=== PATIENT | female | born 1970 | race Caucasian/White ===

== ENCOUNTER → 2024-02-22 08:36 | Outpatient (REF) | payer OTHER, SELFPAY ==
[2024-02-22 09:20] LABS: % Basophils 2.6 % (0-2); % Eosinophils 6.6 % (0-6); % Lymphocytes 43.1 % (20.5-51.1); % Neutrophils 41.7 % (42.2-75.2); Absolute Basophils 0.1 10^3/uL (0-0.2); Absolute Eosinophils 0.2 10^3/uL (0-0.7); Absolute Lymphocytes 1.5 10^3/uL (1.2-3.4); Absolute Monocytes 0.2 10^3/uL (0.1-0.6); Absolute Neutrophils 1.5 10^3/uL (1.4-6.5); White Blood Cell Count 3.5 10^3/uL (4.8-10.8)
[2024-02-22 09:43] LABS: AST (SGOT) 64 U/L (14-36)
[2024-02-22 10:13] LABS: Glycohemoglobin (HgbA1c) 5.7 % (4.0-5.6)
[2024-02-24 00:05] LABS: Lipoprotein a (Lp a) 108 mg/dL (<=29)
== END ==
LOC: REG 08:36
PROVIDERS: ATTENDING PHYSICIAN Internal Medicine Cardiovascular Disease; FAMILY PHYSICIAN Nurse Practitioner
DX: E78.5 Hyperlipidemia, unspecified (principal); E78.00 Pure hypercholesterolemia, unspecified; R73.03 Prediabetes; R79.89 Other specified abnormal findings of blood chemistry; D72.819 Decreased white blood cell count, unspecified
CPT/HCPCS: 36415; 83036; 83695; 84450; 85004

== ENCOUNTER → 2024-07-28 06:44 | Outpatient (REF) | payer OTHER, SELFPAY | LOC: HWRAD 06:44 | PROVIDERS: ATTENDING PHYSICIAN Internal Medicine Gastroenterology; FAMILY PHYSICIAN Internal Medicine | DX: R79.89 Other specified abnormal findings of blood chemistry (principal) | CPT/HCPCS: 76700 ==

== ENCOUNTER → 2025-02-19 10:34 | Outpatient (REF) | payer OTHER, SELFPAY | LOC: WDC 10:34 | PROVIDERS: ATTENDING PHYSICIAN Physician Assistant Medical | DX: Z12.31 Encounter for screening mammogram for malignant neoplasm of breast (principal) | CPT/HCPCS: 77063; 77067 ==

== ENCOUNTER 2025-05-22 12:24 | Day surgery (SDC) | payer OTHER, SELFPAY ==
[2025-05-22] VITALS (13 sets, daily range): BP systolic 117–142; BP diastolic 69–98; BMI 17.1
--- NOTE | 2025-05-22 05:33 | ED.GENMED ---
History of Present Illness
<Bipin Pérez MD - Last Filed: 05/22/25 13:39>
General
Chief Complaint: Abdominal Pain
Source: patient and spouse
Exam Limitations: none
Time Seen by Provider: 05/22/25 05:13
Nursing documentation reviewed up to this point in time: agreed with
History of Present Illness
History of Present Illness:
Patient presents to ED secondary to persistent lower abdominal pain along with sensation of being 'tired' over the past 3 days. Abdominal pain described as discomfort, nonradiating, without vomiting or diarrhea. Initially, abdominal pain appeared
to be worse with certain meals, but over the past 24 hours, he has been able to tolerate meals without any change in his symptoms. Denies previous history of similar symptoms. Denies fever or chills. Denies trauma. Patient does have history of
kidney stones, but states that her symptoms are different. Denies recent travel. Denies recent change in medications or diet. Denies sick contact. Patient reports having had previous colonoscopy, without any significant findings.
Past History
<Bipin Pérez MD - Last Filed: 05/22/25 13:39>
Past History
ED Past Medical History: None
ED Past Surgical History: None
Social History
Tobacco: Non-smoker
Alcohol: None
Drug: None
Review of Systems
<Bipin Pérez MD - Last Filed: 05/22/25 13:39>
Review of Systems
Allergies reviewed?: Yes
All Other Systems: ROS reviewed and negative except as documented in HPI and ROS
Constitutional: Reports no symptoms; Denies fever
Respiratory: Reports no symptoms
Cardiac: Reports no symptoms
ABD/GI: Reports abdominal pain; Denies vomiting or diarrhea
Musculoskeletal: Reports no symptoms
Skin: Reports no symptoms
Neurological: Reports no symptoms
Phy Exam
<Bipin Pérez MD - Last Filed: 05/22/25 13:39>
Physical Exam
Physical Exam:
Physical Exam
General: mild distress, not acutely ill. afebrile
Head: nc/at. eomi
Neck: supple. normal range of motion.
Abdomen: normal bowel sounds. no distention. mild periumbilical tenderness to palpation
Neuro: alert and oriented x 3. no focal neurological deficits
Skin: no rash
Psychiatric: well kept. interactive and cooperative
Extremities: no edema. no calf tenderness.
Course
<Bipin Pérez MD - Last Filed: 05/22/25 13:39>
Orders/Labs/Results
Orders:
Orders
05/22/25 05:03
IV Insert/Care/Rem.- Treatment PRN
05/22/25 05:24
CT Abd/pelvis W Iv Cont Urgent
Comment:
Reason For Exam: RLQ pain
05/22/25 05:31
Complete Blood Count/With Diff Urgent
Comprehensive Metabolic Panel Urgent
Lipase Urgent
05/22/25 06:11
0.9% Sodium Chloride 500 ml [Nss] 500 ml IV BOLUS
05/22/25 07:54
Piperacillin/Tazo 4.5 Gram [Zosyn] 4.5 gram in 100 ml IV NOW
05/22/25 08:15
Urinalysis Reflex To Culture Urgent
Date Specimen was Collected: 05/22/25
Time Specimen was Collected: 05:04
Urine Microscopic Reflex Cult Urgent
Urine Culture Urgent
DARIUS Source: U
Specimen Description:
Date Specimen was Collected: 05/22/25
Time Specimen was Collected: 05:04
05/22/25 10:10
Dexamethasone Sod Phosphate [Decadron] 20 mg .ROUTE .STK-MED ONE
Lidocaine 2% Mpf [Xylocaine Mpf 2%] 100 mg .ROUTE .STK-MED ONE
Ondansetron Injectable [Zofran] 4 mg .ROUTE .STK-MED ONE
Propofol [Diprivan] 20 ml .ROUTE .STK-MED
Rocuronium Diamond [place] [Rocuronium] 50 mg .ROUTE .STK-MED ONE
05/22/25 10:56
Admit/Transfer Patient As Directed
Co-Sign Provider:
Level of Care: Post Proc/Surg Recovery
Assign to:: Medical/Surgical
Physician / Group: [facility]inson/general surgery
Diagnosis: Acute appendicitis
Reason for Overnight Stay: Standard of Care
Code Status As Directed
Resuscitation Status: Full Code
PRN Pain Medication Management As Directed
May give lesser potent ordered pain med per pt: Yes
preference::
Protocol:: Medication orders for pain may be administered in a
manner that supports deferring to patient preference
when the pt is:
- Requesting an ordered lesser potent pain medication.
Least to most potent pain medications are defined
as: acetaminophen < NSAID < tramadol < opioids
(morphine, oxycodone, hydromorphone).
- Requesting a lesser dose of the same medication IF
ORDERED.
- Requesting a less intrusive route of administration
if both routes are prescribed by the provider (PO <
IV).
05/22/25 11:00
0.9% Sodium Chloride 1000 ml [Nss] 1,000 ml IV 100 mls/hr
05/22/25 11:57
Fentanyl Citrate/Pf [Sublimaze] 25 mcg IV [id number] PRN
HYDROmorphone [Dilaudid] 0.25 mg IV PACU-Q5MPRN PRN
HYDROmorphone [Dilaudid] 0.5 mg IV PACU-Q5MPRN PRN
Ondansetron Injectable [Zofran] 4 mg IV PACU-ONCEPRN PRN
Notify MD As Directed
Notify physician if: for SDS patients with known or suspected sleep obstructive sleep apnea, monitor in the
PACU.
Notify MD for any apneic/desaturation episodes
O2 Therapy [RESP] Urgent
Titrate/Wean O2 to maintain O2 sat greater than (%): 92
Special Instructions: -Provide supplemental oxygen to achieve O2 sat of 92% or greater.
-After 15 min, may wean O2 and discontinue if patient is able to maintain O2 sat of 92%
or greater during recovery period.
If patient is a discharge home, without oxygen therapy, notify anestheiologist if
unable to maintain O2 SAT of 92% or greater on room air for MD clearance.
05/22/25 12:00
Normosol (Mult Electrolytes) [Normosol-R/Plasmalyte-A] 1,000 ml IV PER PROTOCOL
05/22/25 12:18
Piperacillin/Tazo 3.375 Gram [Zosyn] 3.375 gram in 50 ml .ROUTE .STK-MED
05/22/25 12:33
Fentanyl Citrate/Pf [Sublimaze] 100 mcg .ROUTE .STK-MED ONE
Midazolam HCl [Versed] 2 mg .ROUTE .STK-MED ONE
05/22/25 12:37
Bupivacaine 0.5%Pf/Epinephrin [Sensorcain-Mpf Epi 0.5%-0.0005] 30 ml .ROUTE .STK-MED ONE
05/22/25 12:45
Propofol [Diprivan] 40 ml .ROUTE .STK-MED
05/22/25 13:14
Phenylephrine HCl/0.9% NaCl [Blair-Synephrine] 1,000 mcg .ROUTE .STK-MED ONE
05/22/25 13:18
Sugammadex Sodium [Bridion] 200 mg .ROUTE .STK-MED ONE
05/22/25 13:30
Ketorolac [Toradol] 30 mg .ROUTE .STK-MED ONE
05/22/25 13:33
OR Pathology Routine
Pre-Operative Diagnosis: ACUTE APPENDICITIS
Operative Procedure: LAP APPY
Surgeon: DR. Wesly DIXON
Specimen Type: APPENDIX
Abnormal Lab Results
05/22/25 05/22/25
05:31 08:15
Absolute Neuts (auto) 9.2 H 10^3/uL
(1.4-6.5)
Absolute Lymphs (auto) 0.8 L 10^3/uL
(1.2-3.4)
Absolute Monos (auto) 0.7 H 10^3/uL
(0.1-0.6)
Neutrophils % 84.8 H %
(42.2-75.2)
Lymphocytes % 7.3 L %
(20.5-51.1)
Sodium 130 L mmol/L
(135-145)
Chloride 95 L mmol/L
(98-107)
Glucose 110 H mg/dl
(70-99)
AST 43 H U/L
(14-36)
Urine Ketones 3+ A
(Negative)
Ur Occult Blood Reflex 2+ A
(Negative)
Urine Bacteria (Reflex) Many A
(Negative)
Urine Albumin (Reflex) 2+ A
(Neg - Trace)
05/22/25 05:31
05/22/25 05:31
Vital Signs
Initial and Last Documented VS:
Initial Vital Signs
Temp Pulse Resp BP Pulse Ox
98.4 F 87 18 135/88 97
05/22/25 04:49 05/22/25 04:49 05/22/25 04:49 05/22/25 04:49 05/22/25 04:49
Last Documented Vital Signs
Temp Pulse Resp BP Pulse Ox
98.6 F 69 20 130/79 96
05/22/25 07:39 05/22/25 10:30 05/22/25 07:39 05/22/25 10:00 05/22/25 10:30
<Glenny Cleveland, DO - Last Filed: 05/22/25 07:54>
Orders/Labs/Results
Orders:
Orders
05/22/25 05:03
IV Insert/Care/Rem.- Treatment PRN
05/22/25 05:24
CT Abd/pelvis W Iv Cont Urgent
Comment:
Reason For Exam: RLQ pain
05/22/25 05:31
Complete Blood Count/With Diff Urgent
Comprehensive Metabolic Panel Urgent
Lipase Urgent
05/22/25 06:11
0.9% Sodium Chloride 500 ml [Nss] 500 ml IV BOLUS
05/22/25 07:54
Piperacillin/Tazo 4.5 Gram [Zosyn] 4.5 gram in 100 ml IV NOW
05/22/25 08:15
Urinalysis Reflex To Culture Urgent
Date Specimen was Collected: 05/22/25
Time Specimen was Collected: 05:04
Urine Microscopic Reflex Cult Urgent
Urine Culture Urgent
DARIUS Source: U
Specimen Description:
Date Specimen was Collected: 05/22/25
Time Specimen was Collected: 05:04
05/22/25 10:10
Dexamethasone Sod Phosphate [Decadron] 20 mg .ROUTE .STK-MED ONE
Lidocaine 2% Mpf [Xylocaine Mpf 2%] 100 mg .ROUTE .STK-MED ONE
Ondansetron Injectable [Zofran] 4 mg .ROUTE .STK-MED ONE
Propofol [Diprivan] 20 ml .ROUTE .STK-MED
Rocuronium [place] [Rocuronium] 50 mg .ROUTE .STK-MED ONE
05/22/25 10:56
Admit/Transfer Patient As Directed
Co-Sign Provider:
Level of Care: Post Proc/Surg Recovery
Assign to:: Medical/Surgical
Physician / Group: Linson/general surgery
Diagnosis: Acute appendicitis
Reason for Overnight Stay: Standard of Care
Code Status As Directed
Resuscitation Status: Full Code
PRN Pain Medication Management As Directed
May give lesser potent ordered pain med per pt: Yes
preference::
Protocol:: Medication orders for pain may be administered in a
manner that supports deferring to patient preference
when the pt is:
- Requesting an ordered lesser potent pain medication.
Least to most potent pain medications are defined
as: acetaminophen < NSAID < tramadol < opioids
(morphine, oxycodone, hydromorphone).
- Requesting a lesser dose of the same medication IF
ORDERED.
- Requesting a less intrusive route of administration
if both routes are prescribed by the provider (PO <
IV).
05/22/25 11:00
0.9% Sodium Chloride 1000 ml [Nss] 1,000 ml IV 100 mls/hr
05/22/25 11:57
Fentanyl Citrate/Pf [Sublimaze] 25 mcg IV [id number] PRN
HYDROmorphone [Dilaudid] 0.25 mg IV PACU-Q5MPRN PRN
HYDROmorphone [Dilaudid] 0.5 mg IV PACU-Q5MPRN PRN
Ondansetron Injectable [Zofran] 4 mg IV PACU-ONCEPRN PRN
Notify MD As Directed
Notify physician if: for SDS patients with known or suspected sleep obstructive sleep apnea, monitor in the
PACU.
Notify MD for any apneic/desaturation episodes
O2 Therapy [RESP] Urgent
Titrate/Wean O2 to maintain O2 sat greater than (%): 92
Special Instructions: -Provide supplemental oxygen to achieve O2 sat of 92% or greater.
-After 15 min, may wean O2 and discontinue if patient is able to maintain O2 sat of 92%
or greater during recovery period.
If patient is a discharge home, without oxygen therapy, notify anestheiologist if
unable to maintain O2 SAT of 92% or greater on room air for MD clearance.
05/22/25 12:00
Normosol (Mult Electrolytes) [Normosol-R/Plasmalyte-A] 1,000 ml IV PER PROTOCOL
05/22/25 12:18
Piperacillin/Tazo 3.375 Gram [Zosyn] 3.375 gram in 50 ml .ROUTE .STK-MED
05/22/25 12:33
Fentanyl Citrate/Pf [Sublimaze] 100 mcg .ROUTE .STK-MED ONE
Midazolam HCl [Versed] 2 mg .ROUTE .STK-MED ONE
05/22/25 12:37
Bupivacaine 0.5%Pf/Epinephrin [Sensorcain-Mpf Epi 0.5%-0.0005] 30 ml .ROUTE .STK-MED ONE
05/22/25 12:45
Propofol [Diprivan] 40 ml .ROUTE .STK-MED
05/22/25 13:14
Phenylephrine HCl/0.9% NaCl [Blair-Synephrine] 1,000 mcg .ROUTE .STK-MED ONE
05/22/25 13:18
Sugammadex Sodium [Bridion] 200 mg .ROUTE .STK-MED ONE
05/22/25 13:30
Ketorolac [Toradol] 30 mg .ROUTE .STK-MED ONE
05/22/25 13:33
OR Pathology Routine
Pre-Operative Diagnosis: ACUTE APPENDICITIS
Operative Procedure: LAP APPY
Surgeon: DR. Wesly DIXON
Specimen Type: APPENDIX
Abnormal Lab Results
05/22/25 05/22/25
05:31 08:15
Absolute Neuts (auto) 9.2 H 10^3/uL
(1.4-6.5)
Absolute Lymphs (auto) 0.8 L 10^3/uL
(1.2-3.4)
Absolute Monos (auto) 0.7 H 10^3/uL
(0.1-0.6)
Neutrophils % 84.8 H %
(42.2-75.2)
Lymphocytes % 7.3 L %
(20.5-51.1)
Sodium 130 L mmol/L
(135-145)
Chloride 95 L mmol/L
(98-107)
Glucose 110 H mg/dl
(70-99)
AST 43 H U/L
(14-36)
Urine Ketones 3+ A
(Negative)
Ur Occult Blood Reflex 2+ A
(Negative)
Urine Bacteria (Reflex) Many A
(Negative)
Urine Albumin (Reflex) 2+ A
(Neg - Trace)
05/22/25 05:31
05/22/25 05:31
Vital Signs
Initial and Last Documented VS:
Initial Vital Signs
Temp Pulse Resp BP Pulse Ox
98.4 F 87 18 135/88 97
05/22/25 04:49 05/22/25 04:49 05/22/25 04:49 05/22/25 04:49 05/22/25 04:49
Last Documented Vital Signs
Temp Pulse Resp BP Pulse Ox
98.6 F 69 20 130/79 96
05/22/25 07:39 05/22/25 10:30 05/22/25 07:39 05/22/25 10:00 05/22/25 10:30
<Bipin Pérez MD - Last Filed: 05/22/25 13:39>
*Pulse Oximetry
SaO2: 97
Oxygen Mode of Delivery: Room air
Patient hypoxic: no
*Critical Care Note
Total Time (30-74mins, 75-104mins- exclusive of procedures): Not Applicable
<Glenny Cleveland DO - Last Filed: 05/22/25 07:54>
Update Note
Update Note:
Attending Sign Out Note (Glenny Cleveland DO)
07:20 -assuming care of patient, 54-year-old female presenting to the emergency department for right lower abdominal pain with generalized fatigue and tiredness. No report of fever or additional GI issues. Hemodynamically stable in the emergency
department. Noted to have some generalized tenderness to lower abdomen. Reassuring workup thus far with normal laboratory analysis. Pending CT abdomen and pelvis
07:50 -discussed with radiology with concern for acute appendicitis. Message sent to surgery. Likely plan for admission with antibiotics and surgical management.
ED Attending Note
<Bipin Pérez MD - Last Filed: 05/22/25 13:39>
-
Portions of this chart may have been created with voice recognition software.� Occasional wrong word or��sound alike� substitutions may have occurred due to the inherent limitations of voice recognition software.
Discharge Plan
Departure
Patient Disposition: Admit
Date of Disposition: 05/22/25
Time of Disposition: 08:30
Presentation/result/management discussed w/ accepting MD/DO: gabe Dixon
Patient with high blood pressure during this ER visit?: No
Condition: Good
Discharge Problem:
Acute appendicitis
Interventions
Interventions:
*Risk Screen - Suicide Last Done: 05/22/25 04:52
*General Assessment Last Done: 05/22/25 04:52
*Neglect/Abuse Screening Last Done: 05/22/25 04:52
*ED- Fall Risk Assessment Last Done: 05/22/25 04:52
*ED COVID-19 Vaccine History Last Done: 05/22/25 04:52
*ED Influenza Vaccine History Last Done: 05/22/25 04:52
*Nursing Disposition Last Done: 05/22/25 12:01
YJ-Dzuyaf-Tbctaypyza Assessment Last Done: 05/22/25 07:39
Discharge Date and Time
Discharge Date/Time: 05/22/25 12:03
[2025-05-22 05:42] LABS: Hematocrit 39.0 % (37.0-47.0); Hemoglobin 13.5 g/dL (12.0-16.0); Mean Corp Hgb Conc. 34.6 g/dL (33.0-37.0); Mean Corpuscular Volume 89.7 fL (81.0-99.0); Nucleated Red Blood Cells % 0 %; Platelet Count 250 10^3/uL (130-400); Red Cell Dist. Width 11.9 % (11.5-14.5)
[2025-05-22 06:08] LABS: ALT (SGPT) 11 U/L (0-35); AST (SGOT) 43 U/L (14-36); Albumin 4.3 g/dl (3.5-5.0); Alkaline Phosphatase 63 U/L (38-126); Blood Urea Nitrogen 13 mg/dl (7-17); Calcium 9.2 mg/dl (8.4-10.2); Carbon Dioxide 28 mmol/L (22-30); Chloride 95 mmol/L (98-107); Estimated Creatinine Clearance 71 ml/min; Glucose 110 mg/dl (70-99); Lipase 181 U/L (23-300); Potassium 4.0 mmol/L (3.5-5.1); Sodium 130 mmol/L (135-145); Total Protein 7.3 g/dl (6.3-8.2); eGFR > 60.00
[2025-05-22] MEDS: NSS 500 IV (06:32)
[2025-05-22] MEDS: ZOSYN 100 IV (08:27)
[2025-05-22 08:41] LABS: Urine Character Clear (Clear)
[2025-05-22 09:05] LABS: Urine Red Blood Cell 0-2 /HPF (0-2); Urine White Cell 0-2 /HPF (0-5)
--- NOTE | 2025-05-22 10:47 | HPS.HSE ---
Addendum entered and electronically signed by Angelo Zamorano MD 05/22/25 11:06:
I saw and examined the patient.
The Resolution Analyst's note was reviewed and I agree with the note.
Comment: Periumbilical pain began 3 days ago and migrated to RLQ. ttp on exam. labs essentially unremarkable. CT c/w acute appendicitis with appendicolith. OCTOR for lap appy. IV abx.
Original Note:
Family Physician
-
Family Physician: Roxanne Leiws DO
Chief Complaint
-
RLQ pain
History of Present Illness
Ms Schwab is a 54 yo female with a h/o migraines, SVT and renal stones requiring ureteroscopy in the past who presents with abdominal pain which began Sunday night initially as a sharp pain near the umbilicus. Pain was initially generalized and then
began to localize to the RLQ with tenderness to touch. She denies nausea or vomiting but notes pain worsens with PO intake. She has felt very fatigued since onset of symptoms. She denies fevers or chills. On exam, RLQ tenderness is present.
Medical History
Past Medical History
Past Medical History: Reports Arrhythmia (SVT) and Other (migraine, spinal stenosis)
Past Surgical History: Reports Urological (ureteroscopy for stones) and Other (colonoscopy 2022 with polypectomy)
Social History
Tobacco: Non-smoker
Alcohol: None
Personal:
Living: With Family
Family History
Family History: Not pertinent
Allergies / Home Medications
Allergies reflects when Allergies were last updated in [employer]
Home Medications with original date entered in [employer]
Allergy/Medication List:
Patient Allergies
Allergy/AdvReac Type Severity Reaction Status Date / Time
Sulfa (Sulfonamide Allergy Unknown Verified 05/20/20 22:31
Antibiotics)
�Medication �Instructions �Recorded �Confirmed �Type
coQ10 (ubiquinol) 100 mg capsule 100 mg PO DAILY Supplement 05/22/25 05/22/25 History
magnesium oxide 200 mg PO DAILY Supplement 05/22/25 05/22/25 History
sumatriptan succinate 50 mg tablet 0 mg PO .COMPLEX 05/22/25 05/22/25 History
(Imitrex)
therapeutic multivitamin 1 tab PO DAILY Supplement 05/22/25 05/22/25 History
vitamin B complex 1 tab PO DAILY Supplement 05/22/25 05/22/25 History
Review of Systems
-
History Source: Patient and Family
A 12 point ROS was completed and negative except as noted: Yes
Physical Exam
Vital Signs
Vital Signs
Temp Pulse Resp BP Pulse Ox
98.6 F 68 20 117/81 97
05/22/25 07:39 05/22/25 09:15 05/22/25 07:39 05/22/25 09:00 05/22/25 09:15
Physical Exam
General: Well Developed and Other (thin)
HEENT: NormoCephalic and Moist mucous membranes
Respiratory: Non Labored Respirations
GI: Soft, Non Distended and Tender (RLQ)
Skin: Warm and Dry
Neuro: Awake, Alert and AO x 3
Psych: Calm
Laboratory Results
-
05/22/25 05:31
05/22/25 05:31
Laboratory Results
Total Bilirubin 0.7 mg/dl (0.2-1.3) 05/22/25 05:31
AST 43 U/L (14-36) H 05/22/25 05:31
ALT 11 U/L (0-35) 05/22/25 05:31
Alkaline Phosphatase 63 U/L (38-126) 05/22/25 05:31
Lipase 181 U/L (23-300) 05/22/25 05:31
Data Reviewed
-
CT Scan: Image Personally Visualized and interpreted, Report Reviewed by me, Discussed with Physician, Discussed with Patient and Discussed with Family
Lab Data: Labs Reviewed by me, Discussed with Physician, Discussed with Patient and Discussed with Family
Old Records: Reviewed
Impression/Plan
-
IMPRESSION: 54 yo female presenting with 3-4 days of abdominal pain which was initially generalized but now localized to the RLQ. Fatigue since onset of symptoms with increased pain with PO intake. Tenderness present on exam to the RLQ. CT imaging
reviewed and consistent with acute appendicitis. No evidence of perforation. AFVSS. No leukocytosis, however left shift present. Mild hyponatremia suspect secondary to hypovolemia from poor PO intake over the past few days
PLAN:
Keep NPO
C/W IV zosyn which was initiated in the ED
start IVF with NSS @100ml/hr
Analgesics prn
Will plan OR later today for laparoscopic appendectomy
--- NOTE | 2025-05-22 12:00 | EDRN ---
Teri from the OR called this RN and verbal report was given
--- NOTE | 2025-05-22 13:39 | OR.RPT ---
Operative Report
Operative Report
Primary Surgeon: Lona
Assisting: Yolie HOROWITZ
Pre-op Diagnosis: Acute appendicitis
Post-op Diagnosis: Same
Procedure Performed: Laparoscopic appendectomy
Anesthesia Type: GETA
Specimen / Cultures: Appendix
Estimated Blood Loss: 5cc
Complications: None immediate
Operative Findings: Severely inflamed appendix with gangrenous changes, turbid yellow fluid in the pelvis, no bayron pus, tiny brown stool extruded through microperforation at necrotic base
Date of Surgery: 05/22/25
Indications: This 54F developed right lower quadrant abdominal pain and on workup was found to have acute appendicitis. Laparoscopic appendectomy was elected.
Description of procedure: The patient was placed on the operating table in the supine position. General anesthesia was induced. A time-out was completed verifying correct patient, procedure, site, positioning, and special equipment prior to
beginning this procedure. An orogastric tube was placed. The abdomen was prepped and draped in the usual sterile fashion. A stab incision was made in left upper quadrant and the Veress needle was inserted. Proper position was confirmed by aspiration
and saline meniscus test. The abdomen was insufflated with carbon dioxide to a pressure of 12 mmHg. The patient tolerated insufflation well.
A 5mm optical trocar was then inserted at the left lower quadrant. The laparoscope was inserted and the abdomen inspected. No injuries from initial trocar placement or Veress needle insertion were noted. Additional trocars were then inserted in the
following locations: a 12-mm trocar at the umbilicus and a 5-mm trocar midline in the suprapubic space. The abdomen was inspected and no abnormalities were found. The table was placed in the Trendelenburg position with the right side up. The
appendix was seated low in the pelvis and densely adherent to the cecum. It was gently bluntly liberated from the cecum and uncoiled. The tip of the appendix was gently grasped with an atraumatic grasper and retracted toward the patient�s feet and
abdominal wall. This maneuver exposed the appendiceal blood supply which was controlled with the Ligasure device. Following this, a laparoscopic linear cutting stapler with a 45mm lunsford load was deployed and used to transect the appendix at its base.
The base was necrotic and a very small amount of brown stool extruded through a tiny perforation. The appendix was placed in an endoscopic retrieval bag, removed through the umbilical port, and passed off the table as a specimen.
We then turned our attention to the staple line, which was noted to be hemostatic. Turbid yellow fluid suctioned from pelvis. Right ower quadrant and pelvis irrigated thoroughly with sterile saline until effluent ran clear. The umbilical trocar site
was closed at the fascial level laparoscopically with 2-0 PDS under direct vision. Secondary trocars were removed under direct vision and noted to be hemostatic. The laparoscope was withdrawn and the abdomen was allowed to collapse. The skin was
closed with subcuticular sutures of 4-0 monocryl and topical skin adhesive. The orogastric tube was removed.
The patient tolerated the procedure well and was taken to the postanesthesia care unit in stable condition.
The assistance of Yolie HOROWITZ was required due to the complexity of the procedure. During the procedure she assisted with retraction, resection, and closure of the wound.
--- NOTE | 2025-05-22 13:46 | W.DS.TRANS ---
DC Summary - Business Segment Manager
-
Discharge Instructions:
Discharge Diagnosis/Procedures Acute appendicitis
Diet No restrictions
Activity No strenuous activity
Driving Restrictions No driving for 24 hours
Bathing Restrictions OK to Shower
Wound Care Allow skin glue to flake off on its own
Instructions: Appendectomy (DC)
Stand-Alone Forms:
Changes to Home Medications: No
Discharge Medications:
DC Medications w/original date entered in [email or web address]
amoxicillin 875 mg-potassium clavulanate 125 mg tablet 1 tab PO Q12 antibiotic #14 tabs 05/22/25
coQ10 (ubiquinol) 100 mg capsule 100 mg PO DAILY Supplement 05/22/25
magnesium oxide 200 mg PO DAILY Supplement 05/22/25
sumatriptan succinate 50 mg tablet (Imitrex) 0 mg PO .COMPLEX 05/22/25
therapeutic multivitamin 1 tab PO DAILY Supplement 05/22/25
tramadol 50 mg tablet 50 mg PO Q6H PRN Pain #20 tabs 05/22/25
vitamin B complex 1 tab PO DAILY Supplement 05/22/25
Home Medication Changes
Pending Results: No
== END 2025-05-22 16:15 | disposition home or self-care (01) ==
LOC: PACU 12:24
PROVIDERS: Emergency Medicine; ATTENDING PHYSICIAN Surgery; EMERGENCY PHYSICIAN Student in an Organized Health Care Education/Training Program; FAMILY PHYSICIAN Internal Medicine
DX: K35.32 Acute appendicitis with perforation, localized peritonitis, and gangrene, without abscess (principal); K38.1 Appendicular concretions
CPT/HCPCS: 44970; 74177; 80053; 81003; 81015; 83690; 85025; 87086; 88304; 96361; 96365; 96375; 99284; Q9967